=== PATIENT | male | born 1960 | race Caucasian/White ===

== ENCOUNTER 2021-10-14 03:14 | Emergency (ER) | payer MEDICAID ==
[~2021-10-14] VITALS: Ht 172.7 cm; Wt 86.4 kg
[2021-10-14 04:02] LABS: BASOPHILS % (AUTO) 0.1 % (0-1); EOSINOPHILS # (AUTO) 0.1 X10'3 (0-0.9); EOSINOPHILS % (AUTO) 0.4 % (0-6); HEMATOCRIT 40.7 % (42.0-52.0); HEMOGLOBIN 13.6 g/dl (14.0-17.9); LYMPHOCYTES # (AUTO) 1.2 X10'3 (1.1-4.8); MEAN CORPUSCULAR HEMOGLOBIN 28.5 PG (27.0-31.0); MEAN CORPUSCULAR HGB CONC 33.3 g/dL (33.0-36.5); MEAN CORPUSCULAR VOLUME 85.5 FL (78-98); MEAN PLATELET VOLUME 7.9 FL (7.4-10.4); MONOCYTES # (AUTO) 0.8 X10'3 (0-0.9); NEUTROPHILS # (AUTO) 9.9 X10'3 (1.8-7.7); NEUTROPHILS % (AUTO) 82.5 % (42-75); PLATELET COUNT 247 X10'3 (140-440); RED BLOOD COUNT 4.76 X10'6 (4.70-6.10); RED CELL DISTRIBUTION WIDTH 13.8 % (11.5-14.5)
[2021-10-14 04:19] LABS: ALANINE AMINOTRANSFERASE 67 U/L (12-78); ALBUMIN 3.4 G/DL (3.4-5.0); ALKALINE PHOSPHATASE 88 IU/L (46-116); ANION GAP 14 (8-16); ASPARTATE AMINO TRANSFERASE 32 U/L (10-37); BILIRUBIN,TOTAL 0.4 MG/DL (0.1-1.0); BLOOD UREA NITROGEN 18 MG/DL (7-18); BUN/CREATININE RATIO 14.4 (5.4-32.0); CHLORIDE 98 MMOL/L (99-107); CREATININE 1.25 MG/DL (0.60-1.10); GLUCOSE 129 MG/DL (70-104); LIPASE 147 U/L (73-393); SODIUM 136 MMOL/L (135-145); TOTAL CARBON DIOXIDE 23.8 MMOL/L (24-32); TOTAL PROTEIN 6.9 G/DL (6.4-8.2); eGFR 59 ML/MIN
[2021-10-14] MEDS ORDERED: ondansetron/PF 4mg/2ml inj IV ONE (04:20)
[2021-10-14] MEDS ORDERED: normal saline 1000ml 1,000 ML IV ONE (04:20)
[2021-10-14 04:34] LABS: POTASSIUM 2.9 MMOL/L (3.5-5.1)
[2021-10-14] MEDS ORDERED: potassium Cl 20 mEq SR tablet PO STA (04:35)
[2021-10-14] MEDS ORDERED: ONDA4TAB12 PO (05:24)
--- NOTE | 2021-10-14 05:29 | NUR ---
20 OF K GIVEN INSTEAD OF 40 DUE TO N/V. WILL TRY AND GIVE REST OF MEDICATION AGAIN
[2021-10-14] MEDS ORDERED: metoclopramide 5 mg/ml inj IV ONE (05:40)
[2021-10-14 06:05] VITALS: BP 98/54
[2021-10-14] MEDS ORDERED: haloperidol lactate 5mg/ml inj IM ONE (06:15)
[2021-10-14] MEDS ORDERED: diphenhydrAMINE 50 mg/ml inj IV ONE (06:15)
--- NOTE | 2021-10-14 06:23 | NUR ---
PT STILL VOMITING AFTER 2 DOSES OF ZOFRAN AND ONE DOSE OF REGLAN. GIVEN IM HALIDOL AND IV BENADRYL.
--- NOTE | 2021-10-14 06:42 | NUR ---
PT FELL ASLEEP AFTER MED ADMINISTRATION. SATURATIONS DROPPED TO 87-90. 2L NC DELIVERED AND SATURATION INCREASED TO 94%. MD CRUZ
--- NOTE | 2021-10-14 10:32 | NUR ---
PATIENT WOULD LIKE TO SPEAK WITH SOMEONE FROM [employer]. [facility] IS NOT AVAILABLE TO [place], [place] UNTIL FRIDAY. [employer] BUS LEAVING FROM [place] THIS EVENING, BUT FEE IS $193, SO PATIENT IS REQUESTING INFORMATION ABOUT INEXPENSIVE MOTELS IN THE AREA. [employer] PAGED FOR CONSULT.
--- NOTE | 2021-10-14 12:41 | NUR ---
STAFF CONTINUES TO WORK ON DISCHARGE ARRANGEMENTS FOR PATIENT.
== END 2021-10-14 13:24 | disposition home or self-care (01) ==
LOC: ER 03:15
DX: E87.6 Hypokalemia (principal); R11.2 Nausea with vomiting, unspecified; E78.00 Pure hypercholesterolemia, unspecified; I10 Essential (primary) hypertension; Z72.89 Other problems related to lifestyle; Z79.899 Other long term (current) drug therapy; Z86.711 Personal history of pulmonary embolism
CPT/HCPCS: 36415; 80053; 83690; 85025; 96361; 96372; 96374; 96375; 99285; J1200; J1630; J2405; J2765; J7030; A4615